=== PATIENT | male | born 1975 | race Caucasian/White ===

== ENCOUNTER 2017-08-20 05:39 | Outpatient (CLI) | payer OTHER ==
[~2017-08-20] VITALS: Ht 188 cm; Wt 104.3 kg
== END 2017-08-20 11:15 ==
LOC: PREOP 05:39
PROVIDERS: ATTEND Surgery
DX: Z01.818 Encounter for other preprocedural examination (principal); K62.5 Hemorrhage of anus and rectum

== ENCOUNTER → 2017-08-22 | Day surgery (SDC) | payer OTHER ==
[~2017-08-22] VITALS: Ht 188 cm; Wt 104.3 kg
[~2017-08-22] MED LIST: MIDAZOLAM 2 MG/2 ML (VERSED) VIAL ONE; NS IV 500 ML 0 ML ONE; NS IV 500 ML 500 ML IV PRN; fentaNYL INJECTION 100 MCG/2 ML AMP ONE
--- NOTE | 2017-08-22 11:47 | History & Physicial ---
History of Present Illness History of Present Illness Reason for visit/HPI to undergo colonoscopy to investigate rectal bleeding Date of Admission Date Seen by Provider: Aug 22, 2017 Time Seen by Provider: 11:45 I consulted on this patient on 08/22/17 11:45 Attending Physician Lucia Calabrese MD Admitting Physician Consult Allergies and Home Medications Allergies Coded Allergies: No Known Drug Allergies (Unverified , 08/20/17) Home Medications No Active Prescriptions or Reported Meds Past Xzoavaz-Bseqsi-Hlcxes Hx Patient Social History Employed/Student: employed Surgeries No Respiratory No Cardiovascular No Neurological No Reproductive System Hx Reproductive Disorders: No Musculoskeletal No Endocrine History of Endocrine Disorders: No Constitutional: no symptoms reported EENTM: no symptoms reported Respiratory: no symptoms reported Cardiovascular: no symptoms reported Gastrointestinal: see HPI Genitourinary: no symptoms reported Musculoskeletal: no symptoms reported Skin: no symptoms reported Psychiatric/Neurological: No Symptoms Reported Physical Exam Vital Signs Capillary Refill : General Appearance: No Apparent Distress HEENT: Normal ENT Inspection Neck: Normal Inspection Respiratory: Lungs Clear Cardiovascular: Regular Rate, Rhythm Gastrointestinal: Non Tender, Soft Rectal: Deferred Back: Normal Inspection Extremity: Normal Inspection Neurologic/Psychiatric: Alert, Oriented x3 Assessment/Plan Assessment and Plan gentleman with rectal bleeding. For colonoscopy. Problems: LUCIA CALABRESE MD Aug 22, 2017 11:47 am
--- NOTE | 2017-08-22 16:29 | Conscious Sedation/ASA ---
Conscious Sedation Pre-Proced Time Reviewed: 16:28 ASA Class: 2 Airway Mallampati Classification: ([place] appropriate class) I. II. III, IV Lungs Heart ASA score ASA 1: a normal healthy patient ASA 2: a patient with a mild systemic disease (mid diabetes, controlled hypertension, obesity ASA 3: a patient with a severe systemic disease that limits activity (angina , COPD, prior Myocardial infarction) ASA 4: a patient with an incapacitating disease that is a constant threat to life (CHF, renal failure) ASA 5: a moribund patient not expected to survive 24 hrs. (ruptured aneurysm) ASA 6: a declared brain patient whose organs are being harvested. For emergent operations, add the letter E after the classification Grade 1 Sedation Plan: Discussed options with patient/fam Note The patient is an appropriate candidate to undergo the planned procedure, sedation, and anesthesia. The patient immediately re-assessed prior to indication. LUCIA CALABRESE MD Aug 22, 2017 4:29 pm
[2017-08-22] MEDS: fentaNYL INJECTION 100 MCG/2 ML AMP IVP PRN ×2 (16:32→16:50)
[2017-08-22] MEDS: MIDAZOLAM 2 MG/2 ML (VERSED) VIAL IVP PRN ×3 (16:33→16:43)
[2017-08-22 17:05] VITALS: BP 117/92
--- NOTE | 2017-08-22 17:12 | Endo Procedure Record ---
Endo Procedure Report Date of Procedure Aug 22, 2017 Surgeon (s) LUCIA CALABRESE MD Post Procedure/Op Diagnosis inflamed mucosa involving the rectum and the sigmoid colon. 2 mm inflammatory polyp at the proximal rectum Procedure Performed colonoscopy to cecum Hot biopsy polypectomy 1 Multiple biopsies Description of Procedure Anesthesia Type: Conscious Sedation Specimen(s) collected/removed rectal polyp. Mucosal biopsies from all segments of the colon Description of the Procedure Indication for procedure: This gentleman came in for colonoscopy to evaluate rectal bleeding spanning over 25 years. He recalled polyps during his teenage years, but did not have a chance to undergo follow-up colonoscopy. He denied any family history of colon cancer or polyps. Informed consent was obtained after reviewing the procedure in detail. Description of the procedure: He was placed in left lateral rectus position and his vital signs were monitored. Conscious sedation was achieved using Versed and fentanyl. Digital rectal examination revealed bloodstained mucus. The colonoscope was then introduced into the rectum and advanced all the way up to the cecum. It was then withdrawn slowly and the mucosa examined in a systematic fashion. Findings: 1. Inflammation of the rectal and sigmoid colonic mucosa in a continuous fashion, the surface being very friable. The appearance was suggestive of inflammatory bowel disease. Proximal bowel was normal with no skip lesions being noted. Multiple biopsies were taken. 2. 1 mm polyp at the proximal rectum, possibly inflammatory in nature. It was excised with hot biopsy forceps. He tolerated the procedure well and was taken to the recovery room in a stable condition. Impression: Long-standing rectal bleeding. Possibly due to inflammatory bowel disease. Biopsies pending. Note: Reasonable to ablate biopsy results before initiating medical therapy. 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 Copies To: CRISTO SNIDER XAVIER M MD Aug 22, 2017 5:12 pm
--- NOTE | 2017-08-22 17:13 | Discharge Inst-Simple/Standard ---
Discharge Inst-Standard Discharge Medications New, Converted or Re-Newed RX: Other Patient Instructions/Follow Up Plan of Care/Instructions/FU: we would call him with prescriptions once biopsy results become available Activity as Tolerated: Yes Discharge Diet: No Restrictions LUCIA CALABRESE MD Aug 22, 2017 5:13 pm
[2017-08-22 17:35] VITALS: BP 120/88
[2017-08-22 17:42] VITALS: BP 120/88
[2017-08-22 17:48] VITALS: BP 120/88
== END | disposition home or self-care (01) ==
LOC: ENDO 12:46
PROVIDERS: ATTEND Surgery
DX: K52.9 Noninfective gastroenteritis and colitis, unspecified (principal); K62.1 Rectal polyp; K62.5 Hemorrhage of anus and rectum
CPT/HCPCS: 88305